=== PATIENT | female | born 1945 | race Caucasian/White ===

== ENCOUNTER → 2016-09-13 | Outpatient (CLI) | payer OTHER ==
[~2016-09-13] MED LIST: AMPI500C9 PO; HYDR12.56 PO; NXM/40 PO; ONDA8TAB7 PO; ROPI0.5T15 PO
== END | disposition home or self-care (01) ==
LOC: C.CPL 11:13
PROVIDERS: ATTEND Orthopaedic Surgery Sports Medicine
DX: M75.121 Complete rotator cuff tear or rupture of right shoulder, not specified as traumatic (principal)

== ENCOUNTER → 2016-12-27 | Outpatient (CLI) | payer OTHER ==
[2016-12-27 12:48] LABS: CALCIUM 8.9 mg/dl (8.5-10.1)
[2016-12-27 12:50] LABS: BLOOD UREA NITROGEN 9 mg/dl (7-18); BUN/CREATININE RATIO 12.5 (10-20); CARBON DIOXIDE 27 mmol/L (21-32); CHLORIDE 106 mmol/L (98-107); CREATININE 0.69 mg/dl (0.60-1.20); GLUCOSE 100 mg/dl (70-99); POTASSIUM 3.7 mmol/L (3.5-5.1); SODIUM 143 mmol/L (136-145)
== END | disposition home or self-care (01) ==
LOC: C.LAB1850 10:03
PROVIDERS: ATTEND Family Medicine
DX: I10 Essential (primary) hypertension (principal)

== ENCOUNTER → 2017-09-01 | Outpatient (CLI) | payer OTHER | LOC: C.MAMM 14:58 | PROVIDERS: ATTEND Family Medicine | DX: Z78.0 Asymptomatic menopausal state (principal) ==

== ENCOUNTER → 2017-11-06 | Outpatient (CLI) | payer OTHER ==
[2017-11-06 13:05] LABS: HEMATOCRIT 41.1 % (37-47); HEMOGLOBIN 13.6 g/dL (12.0-16.0); MEAN CELL VOLUME 89.2 fL (80-100); MEAN CORPUSCULAR HEMOGLOBIN 29.5 pg (25-34); MEAN CORPUSCULAR HGB CONC 33.1 g/dl (32-36); MEAN PLATELET VOLUME 9.5 fL (7.4-10.4); PLATELET COUNT 313 K/uL (130-400); RED CELL DISTRIBUTION WIDTH SD 41.9 fL (36.4-46.3); WHITE BLOOD COUNT 6.25 K/uL (4.8-10.8)
[2017-11-06 14:34] LABS: ALBUMIN 3.8 gm/dl (3.4-5.0); ALT/SGPT 36 U/L (12-78); AST/SGOT 16 U/L (15-37); BLOOD UREA NITROGEN 12 mg/dl (7-18); CALCIUM 9.1 mg/dl (8.5-10.1); CARBON DIOXIDE 28 mmol/L (21-32); CREATININE 0.71 mg/dl (0.60-1.20); GLUCOSE 98 mg/dl (70-99); POTASSIUM 3.9 mmol/L (3.5-5.1); SODIUM 140 mmol/L (136-145)
[2017-11-06 14:36] LABS: ALKALINE PHOSPHATASE 80 U/L (45-117); CHOLESTEROL 190 mg/dl (0-200); LDL CHOLESTEROL CALCULATED 106 mg/dl; TOTAL PROTEIN 7.6 gm/dl (6.4-8.2)
== END | disposition home or self-care (01) ==
LOC: C.LABPBG 09:35
PROVIDERS: ATTEND Family Medicine
DX: E78.5 Hyperlipidemia, unspecified (principal); I10 Essential (primary) hypertension

== ENCOUNTER 2022-08-05 09:28 | Inpatient (IN) ==
--- NOTE | 2022-08-05 09:49 | Emergency Department Note ---
Impression & Plan Atypical chest pain ED Provider Note NAME: SHAMA PICKARD AGE: 77 SEX: F : 1945 ARRIVES VIA: Walk-In INFORMANT: Patient, ED PROVIDER(S): Dave Ivory MD CHIEF COMPLAINT: Chest pain MEDICAL DECISION MAKING: Patient did present due to concern for chest pain. The patient did have bladder completed along with an EKG troponin DVT ultrasound. Aspirin was initially held due to the patient's Celebrex allergy. After further discussion patient states that she is able to take aspirin. Patient was also ordered nitro. The patient has a normal white count H&H and platelet count. Kidney function is unremarkable. Initial troponin is negative. EKG with no signs of obvious ischemia but the chest pain has improved with nitro. Given this I did speak with the on-call hospitalist Dr. Power and the patient was admitted to the medicine service. Patient's DVT ultrasound was negative. Chest x-ray was clear. Prior /Outside records reviewed: None Differential diagnosis: Cardiac ischemia, aortic dissection, pulmonary embolism, pneumothorax, pneumonia, pericarditis, myocarditis, esophageal rupture, GERD, cholecystitis, pancreatitis, musculoskeletal, as well as other pathologies. Diagnostics, as interpreted by me: ECG: Normal sinus rhythm, rate of 87 normal intervals normal axis no ST elevations or T WI. No significant change from comparison EKG September 13, 2016 Cardiac monitoring: An order was placed for continuous cardiac monitoring. The monitor shows a rate of 82 with sinus rhythm. Patient was placed on pulse oximetry Medical decision rules: none Imaging studies: See below HPI: Patient presents due to concern for chest pain. Patient describes it as left-sided and achiness that is constant. It does wax and wane. Patient does describe worsening with activity and does go to her arm neck and jaw. Patient denies any cough or fever. No leg swelling or calf pain. Patient does state that she has no prior history of DVT or PE no recent surgeries procedures or hospitalizations. The patient has had 2 cardiac catheterizations but they were many many years ago and completed at [facility] and the patient did not require any angioplasty or stent at that time. Patient states that she supposed be on aspirin but she is not taking that. Patient denies any recent falls or trauma no cough or fever no upper respiratory or lower respiratory symptoms. Patient denies any additional exacerbating remitting factors PAST MEDICAL HISTORY: See Below PAST SURGICAL HISTORY: See Below SOCIAL HISTORY: See Below HOME MEDICATIONS: See Below ALLERGIES: See Below VITALS: See Below PHYSICAL EXAMINATION: GENERAL: NAD, wearing a mask, non-toxic. EYE EXAM: Normal conjunctiva. PERRL, no anisocoria and EOM's grossly intact w/o pain. NECK: Supple, no nuchal rigidity, no adenopathy, non-tender. No signs of meningismus. FROM of the neck with good chin to chest and neck extension. No stridor. LUNGS: Clear to auscultation. Normal chest wall mechanics. HEART: NSR, no MRG. ABDOMEN: Abdomen soft, non-tender, normo-active bowel sounds, no masses, no rebound or guarding. BACK: No CVA TTP. SKIN: No rashes and no bruising. UPPER EXTREMITIES: Upper extremities are grossly normal. LOWER EXTREMITIES: Slightly left greater than right lower extremity edema but without calf pain or erythema NEURO EXAM: A&O x3, cranial nerves II-XII grossly intact, normal speech, moves all 4 extremities. Past Med/Surg History Medical History Chronic shoulder pain Diverticulosis Dyslipidemia Esophageal dysmotility Fatty liver GERD (gastroesophageal reflux disease) Hypertension Osteopenia Restless leg syndrome Venous insufficiency (chronic) (peripheral) Surgical History H/O repair of right rotator cuff (09/2016) H/O: hysterectomy History of cataract extraction b/l S/P appendectomy S/P arthroscopy of right shoulder (06/2017) S/P cholecystectomy S/P total knee arthroplasty b/l knee, R 2012 Family History Father Coronary heart disease Liver cancer Myocardial infarction Mother Diabetes Hyperlipidemia Hypertension Sister Diabetes Hypertension Lung cancer Breast cancer Uterine cancer Leukemia Ovarian cancer Brother Hypertension Denies family history of Prostate cancer Colorectal cancer Social History Smoking Status: Never smoker Second Hand Exposure: No; Hx Alcohol Use: No Hx Substance Use: No Preferred Language: Irish Communication Ability: Effective Visual Impairment: No Limitations Hearing Ability: Normal 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 Beliefs That Will Affect Care: Sikhism marital status: Current Living Situation: Family Current Living Situation Comment: daughter living w/ her current occupational status: retired How many Children do You have: 3 How many Children do You have Comment: 3 adopted children 2 boys and a girl Other Information That Helps Us Care for You: Yes Feels Safe at Home: Yes Safety Concerns: Feels Safe At This Time Childhood Exposure to Second-Hand Smoke: Yes Diet Comment: regular caffeine: Yes during the past year weight has: remained stable Dental Care, Regularly: Yes Physical Activity Frequency: Other Seatbelt Use: always Sunscreen Use: No Assistive Devices: None Allergies Allergies Allergy/AdvReac Type Severity Reaction Status Date / Time celecoxib Allergy Unknown HIVES Verified 06/13/22 13:15 Iodinated Contrast Media Allergy Unknown FROM HEART Verified 06/13/22 13:15 CATHERIZATION - TURNED REALLY RED AND MIGRAINE. Home Meds Home Medications Medication Instructions Recorded Confirmed calcium carbonate 600 mg calcium 600 mg PO DAILY 12/25/21 06/13/22 (1,500 mg) tablet (Calcium) cholecalciferol (vitamin D3) 50 50 mcg PO DAILY 12/25/21 06/13/22 mcg (2,000 unit) capsule Previous Rx's Medication Instructions Recorded hydrochlorothiazide 12.5 mg capsule 12.5 mg PO DAILY #90 caps 06/13/22 pantoprazole 40 mg tablet,delayed 40 mg PO BID #180 tabs 06/13/22 release Results & Data (ED) Vital Signs Vital Signs - 24 hr 08/05/22 09:35 Temperature 36.8 C Temperature Source Temporal Artery Scan Pulse Rate 93 H Respiratory Rate 20 Respiratory Effort / Characteristics Non-Labored Spontaneous Respiratory Depth Normal Respiratory Pattern Regular Blood Pressure 149/83 H Blood Pressure Mean 105 Pulse Oximetry 95 Oxygen Delivery Method Room Air Sepsis Recent Fever Within 48 Hours No Sepsis New/Unexplained Change in Mental Status N/A Sepsis Action Taken by Nursing No Action Required Home Medications Current Medication List: was personally reviewed by me Laboratory Data Attestation: I reviewed the patient's lab results. 08/06/22 02:15 08/06/22 02:15 Lab Results 08/05/22 08/05/22 08/05/22 Range/Units 09:49 09:49 09:49 WBC 5.69 (4.8-10.8) K/ul RBC 4.63 (3.93-5.22) M/uL Hgb 13.4 (12.0-16.0) g/dl Hct 40.6 (34.1-44.9) % MCV 87.7 (80.0-100.0) fL MCH 28.9 (25.0-34.0) pg MCHC 33.0 (32.0-36.0) g/dL RDW Std Deviation 38.0 (36.4-46.3) fL RDW Coeff of Kraig 11.9 (11.5-14.5) % Plt Count 274 (130-400) K/uL MPV 9.7 (9.4-12.3) fL Immature Gran % (Auto) 0.2 % Neut % (Auto) 59.1 % Lymph % (Auto) 30.9 % Smith % (Auto) 8.1 % Eos % (Auto) 1.2 % Baso % (Auto) 0.5 % Neut # (Auto) 3.36 (1.4-6.5) K/uL Lymph # (Auto) 1.76 (1.2-3.4) K/uL Smith # (Auto) 0.46 (0.24-0.82) K/uL Eos # (Auto) 0.07 (0-0.50) K/uL Baso # (Auto) 0.03 (0-0.2) K/uL Immature Gran # (Auto) 0.01 (0.00-0.02) K/uL PT 10.3 (9.0-12.0) Seconds INR 1.0 (0.9-1.1) APTT 26.8 (21.0-31.0) Seconds PTT Ratio 1.0 Sodium 143 (136-145) mmol/L Potassium 3.4 L (3.5-5.1) mmol/L Chloride 105 (98-107) mmol/L Carbon Dioxide 32 (21-32) mmol/L Anion Gap 6 (3-11) BUN 20 (6-23) mg/dl Creatinine 0.77 (0.6-1.2) mg/dl Est Cr Clr Drug Dosing 57.1 ml/min Est GFR ( Amer) 86.3 ml/min Est GFR (Non-Af Amer) 74.5 ml/min BUN/Creatinine Ratio 26.0 H (10-20) Glucose 103 H (70-99(Fasting)) mg/dl Calcium 9.3 (8.5-10.1) mg/dl Total Bilirubin 0.5 (0.2-1.0) mg/dl AST 15 (13-39) U/L ALT 18 (7-52) U/L Alkaline Phosphatase 60 (34-104) U/L Troponin I High Sens 2.8 (0-14) pg/ml Total Protein 7.3 (6.0-8.3) gm/dl Albumin 4.6 (3.4-5.0) gm/dl Globulin 2.7 (2.5-4.0) gm/dl Albumin/Globulin Ratio 1.7 (0.9-2) SARS-CoV-2, RNA, NAAT (NEGATIVE) 08/05/22 08/05/22 Range/Units 11:19 12:26 WBC (4.8-10.8) K/ul RBC (3.93-5.22) M/uL Hgb (12.0-16.0) g/dl Hct (34.1-44.9) % MCV (80.0-100.0) fL MCH (25.0-34.0) pg MCHC (32.0-36.0) g/dL RDW Std Deviation (36.4-46.3) fL RDW Coeff of Kraig (11.5-14.5) % Plt Count (130-400) K/uL MPV (9.4-12.3) fL Immature Gran % (Auto) % Neut % (Auto) % Lymph % (Auto) % Smith % (Auto) % Eos % (Auto) % Baso % (Auto) % Neut # (Auto) (1.4-6.5) K/uL Lymph # (Auto) (1.2-3.4) K/uL Smith # (Auto) (0.24-0.82) K/uL Eos # (Auto) (0-0.50) K/uL Baso # (Auto) (0-0.2) K/uL Immature Gran # (Auto) (0.00-0.02) K/uL PT (9.0-12.0) Seconds INR (0.9-1.1) APTT (21.0-31.0) Seconds PTT Ratio Sodium (136-145) mmol/L Potassium (3.5-5.1) mmol/L Chloride (98-107) mmol/L Carbon Dioxide (21-32) mmol/L Anion Gap (3-11) BUN (6-23) mg/dl Creatinine (0.6-1.2) mg/dl Est Cr Clr Drug Dosing ml/min Est GFR ( Amer) ml/min Est GFR (Non-Af Amer) ml/min BUN/Creatinine Ratio (10-20) Glucose (70-99(Fasting)) mg/dl Calcium (8.5-10.1) mg/dl Total Bilirubin (0.2-1.0) mg/dl AST (13-39) U/L ALT (7-52) U/L Alkaline Phosphatase (34-104) U/L Troponin I High Sens 3.0 (0-14) pg/ml Total Protein (6.0-8.3) gm/dl Albumin (3.4-5.0) gm/dl Globulin (2.5-4.0) gm/dl Albumin/Globulin Ratio (0.9-2) SARS-CoV-2, RNA, NAAT NEGATIVE (NEGATIVE) Administered Medications Acetaminophen (Acetaminophen 325 Mg Tab) 650 mg PO Q4H PRN PRN Reason: Pain or Fever Stop: 09/04/22 14:51 Last Admin: 08/05/22 15:27 Dose: 650 mg Documented By: MICH Calcium Carbonate (Calcium Carbonate 1250mg Tab) 1,250 mg PO DAILY [facility] Stop: 09/05/22 08:59 Last Admin: 08/06/22 07:35 Dose: Not Given Documented By: JONI Enoxaparin Sodium (Enoxaparin Inj 40 Mg/0.4 Ml Syr) 40 mg SQ Q24H [facility] Stop: 09/05/22 08:59 Last Admin: 08/06/22 07:37 Dose: 40 mg Documented By: JONI Hydrochlorothiazide (Hydrochlorothiazide 25 Mg Tab) 12.5 mg PO DAILY [facility] Stop: 09/05/22 08:59 Last Admin: 08/06/22 07:36 Dose: Not Given Documented By: JONI Nitroglycerin (Nitroglycerin 2% Ointment 30gm Tube) 0.5 inch EXT Q6H [facility] Stop: 09/04/22 12:44 Last Admin: 08/06/22 06:31 Dose: Not Given Documented By: Admin: 08/06/22 01:19 Dose: 0.5 inch Documented By: Admin: 08/05/22 18:44 Dose: 0.5 inch Documented By: Admin: 08/05/22 12:47 Dose: 0.5 inch Documented By: MALIHA Pantoprazole Sodium (Pantoprazole 40 Mg Tab) 40 mg PO BID [facility] Stop: 09/04/22 20:59 Last Admin: 08/06/22 07:36 Dose: Not Given Documented By: Admin: 08/05/22 20:34 Dose: 40 mg Documented By: CORINA Potassium Chloride (Potassium Chloride Crtab 20 Meq Tabcr) 20 meq PO TID [facility] Stop: 08/06/22 09:01 Last Admin: 08/06/22 07:36 Dose: Not Given Documented By: Admin: 08/05/22 20:35 Dose: 20 meq Documented By: Admin: 08/05/22 13:15 Dose: 20 meq Documented By: MALIHA Vitamin D (Cholecalciferol 1,000 Units 25 Mcg Tab) 2,000 units PO DAILY [facility] Stop: 09/05/22 08:59 Last Admin: 08/06/22 07:36 Dose: Not Given Documented By: JONI Discontinued Medications Aspirin (Aspirin Chew 324 Mg) 324 mg PO NOW STA Stop: 08/05/22 12:01 Last Admin: 08/05/22 12:35 Dose: 324 mg Documented By: MALIHA Famotidine (Famotidine 20mg/5ml Iv Push) Confirm Administered Dose 20 mg IV .STK-MED ONE Stop: 08/05/22 13:18 Last Admin: 08/05/22 13:23 Dose: Not Given Documented By: MALIHA Sodium Chloride (Nss 1000ml) 500 mls @ 999 mls/hr IV .Q31M ONE Stop: 08/05/22 10:39 Last Infusion: 08/05/22 10:49 Dose: 0 mls/hr Documented By: Admin: 08/05/22 10:18 Dose: 999 mls/hr Documented By: FERNANDA Famotidine 20 mg/ Syringe 5 mls @ 2.5 mls/min IV NOW ONE Stop: 08/05/22 12:53 Last Admin: 08/05/22 13:23 Dose: 2.5 mls/min Documented By: MALIHA Nitroglycerin (Nitroglycerin Sl 0.4 Mg/Tab Tab) 0.4 mg SL NOW STA Stop: 08/05/22 10:10 Last Admin: 08/05/22 10:17 Dose: 0.4 mg Documented By: FERNANDA Ondansetron HCl (Ondansetron Inj 2 Mg/Ml 2 Ml Vial) 4 mg IV NOW STA Stop: 08/05/22 10:10 Last Admin: 08/05/22 10:17 Dose: 4 mg Documented By: FERNANDA Imaging Data Radiologist's Impression: Chest X-Ray 08/05/22 09:52 XR chest 1V portable HISTORY: 77 years-old Female Chest pain, nonspecific chest pain COMPARISON: Chest and rib radiographs 06/12/2020 TECHNIQUE: AP view of the chest FINDINGS: Cardiomediastinal and hilar silhouettes are within normal limits. No pneumothorax, pleural effusions, airspace consolidation or pulmonary edema. Mild right hemidiaphragmatic elevation. Degenerative changes of the shoulders and spine. IMPRESSION: No acute process. ACT 112: Negative or not required by law. The above report was generated using voice recognition software. It may contain grammatical, syntax or spelling errors. Electronically signed by: Boy Joshua M.D. 08/05/2022 10:10 AM Venous Doppler Study 08/05/22 10:09 US venous doppler LE LT CLINICAL HISTORY: LLE swelling TECHNIQUE: Left lower extremity real-time compression venous ultrasound with Color Doppler imaging. Utilizing real-time ultrasonic imaging multiple real time high-resolution ultrasonic images with compression and noncompression maneuvers of the deep venous system in addition to color doppler imaging were performed from the common femoral vein through the proximal calf veins. COMPARISON: None available at the time of this dictation. FINDINGS/IMPRESSION: Currently there is normal compressibility of the deep venous system from the common femoral vein through the proximal calf veins. No superficial venous thrombosis is identified. ACT 112: Negative or not required by law. Electronically signed by: Junito Villarreal M.D. 08/05/2022 10:58 AM Discharge Plan Visit Data Chief Complaint: Chest Pain Stated Complaint: CHEST PAIN, NECK PAIN ED Provider: Dave Ivory Discharge Problem: Atypical chest pain Patient Disposition: Admitted As Inpatient Discharge Instructions Interventions: ED Discharge Assessment Last Done: 08/05/22 13:34
[2022-08-05] MEDS ORDERED: ONDANSETRON INJ 2 MG/ML 2 ML VIAL IV STA (10:09)
[2022-08-05] MEDS ORDERED: SODIUM CHLORIDE 0.9% 1000ML 500 ML IV ONE (10:09)
[2022-08-05] MEDS ORDERED: NITROGLYCERIN SL 0.4 MG/TAB TAB SL STA (10:09)
--- NOTE | 2022-08-05 10:12 | XRay Report ---
XR chest 1V portable HISTORY: 77 years-old Female Chest pain, nonspecific chest pain COMPARISON: Chest and rib radiographs 06/12/2020 TECHNIQUE: AP view of the chest FINDINGS: Cardiomediastinal and hilar silhouettes are within normal limits. No pneumothorax, pleural effusions, airspace consolidation or pulmonary edema. Mild right hemidiaphragmatic elevation. Degenerative hurst ges of the shoulders and spine. IMPRESSION: No acute process. ACT 112: Negative or not required by law. The above report was generated using voice recognition software. It may contain grammatical, syntax o r spelling errors. Electronically signed by: Boy Joshua M.D. 08/05/2022 10:10 AM
[2022-08-05 10:17] LABS: Basophils # (auto) 0.03 K/uL (0-0.2); Basophils % (auto) 0.5 %; Eosinophils # (auto) 0.07 K/uL (0-0.50); Eosinophils % (auto) 1.2 %; Hematocrit (blood only) 40.6 % (34.1-44.9); Hemoglobin 13.4 g/dl (12.0-16.0); Immature Granulocytes # (auto) 0.01 K/uL (0.00-0.02); Immature Granulocytes % (auto) 0.2 %; Lymphocytes # (auto) 1.76 K/uL (1.2-3.4); Lymphocytes % (auto) 30.9 %; Mean Corpuscular Hemoglobin 28.9 pg (25.0-34.0); Mean Corpuscular Volume 87.7 fL (80.0-100.0); Mean Platelet Volume 9.7 fL (9.4-12.3); Monocytes # (auto) 0.46 K/uL (0.24-0.82); Monocytes % (auto) 8.1 %; Neutrophils # (auto) 3.36 K/uL (1.4-6.5); Neutrophils % (auto) 59.1 %; Platelet Count 274 K/uL (130-400); RDW Coefficient of Variation 11.9 % (11.5-14.5); Red Blood Count 4.63 M/uL (3.93-5.22); White Blood Count 5.69 K/ul (4.8-10.8)
[2022-08-05 10:30] LABS: Partial Thromboplastin Time 26.8 Seconds (21.0-31.0); Prothrombin Time 10.3 Seconds (9.0-12.0)
[2022-08-05 10:36] LABS: Albumin Globulin Ratio 1.7 (0.9-2); Albumin Level 4.6 gm/dl (3.4-5.0); Bilirubin,Total 0.5 mg/dl (0.2-1.0); Calcium 9.3 mg/dl (8.5-10.1); Creatinine Clr Calc Pharmacy 57.1 ml/min; Est GFR (African American) 86.3 ml/min; Est GFR (Non-African American) 74.5 ml/min; Globulin 2.7 gm/dl (2.5-4.0); Potassium 3.4 mmol/L (3.5-5.1); Total Protein 7.3 gm/dl (6.0-8.3)
[2022-08-05 10:42] LABS: Troponin I High Sensitivity 2.8 pg/ml (0-14)
--- NOTE | 2022-08-05 10:59 | Ultrasound Report ---
US venous doppler LE LT CLINICAL HISTORY: LLE swelling TECHNIQUE: Left lower extremity real-time compression venous ultrasound with Color Doppler imaging. U tilizing real-time ultrasonic imaging multiple real time high-resolution ultrasonic images with compr ession and noncompression maneuvers of the deep venous system in addition to color doppler imaging we re performed from the common femoral vein through the proximal calf veins. COMPARISON: None available at the time of this dictation. FINDINGS/IMPRESSION: Currently there is normal compressibility of the deep venous system from the common femoral vein thro ugh the proximal calf veins. No superficial venous thrombosis is identified. ACT 112: Negative or not required by law. Electronically signed by: Junito Villarreal M.D. 08/05/2022 10:58 AM
[2022-08-05] MEDS ORDERED: ASPIRIN CHEW 324 MG PO STA (12:00)
--- NOTE | 2022-08-05 12:01 | History & Physical Report ---
Date of Service August 05, 2022 Assessment & Plan (1) Chest pain: Plan: Chest pain -Patient reports 3 days of worsening chest pain consistently brought out with exertion including going up stairs and walking on a level plane which is associated with left shoulder radiation, and neck discomfort. She has had shortness of breath and some sweating with these episodes. They are improved by rest. Have occurred less frequently at rest once or twice over the preceding 3 days Pain did improve following administration of sublingual nitro Patient does have a history of esophageal dysmotility/GERD with recent EGD which could present with atypical symptoms, given strong association with exercise and change in quality from her prior GERD pain recommend additional evaluation & ischemic work-up At least moderate risk by heart score. Moderately-Highly suspicious history, normal EKG, age greater than 65, history of hypertension, and family history of early OK, no personal history of tobacco use, initial troponin normal. - Cardiology consulted. EKG NSR without ST segment or T wave changes Initial troponin high-sensitivity negative No personal history of diabetes. History of mild hyperlipidemia with LDL 97, no history of OK. Patient did have 2 cardiac caths the last and [facility] over 20 years ago with no stents placed 2-hour troponin & overnight troponin trended Nitropaste half inch placed Esophageal dysmotility/GERD Continue PPI twice daily Added Pepcid push x1 Elevated glucose Nonfasting 103, no A1c on file. No history of DM. Repeat a.m. BMP/glucose pending Hypertension Stable on hydrochlorothiazide Hyperlipidemia Controlled as outpatient with diet and exercise, 06/13/2022: Triglycerides 117, cholesterol 189, LDL, 97, HDL 69 Fatty liver disease No transaminitis, stable as outpatient Osteopenia Continue on calcium/vitamin D Diet: N.p.o. pending cardiac eval Disposition: Medical telemetry for chest pain DVT prophylaxis: Lovenox CODE STATUS: DNR/DNI, discussed with patient and daughter at bedside (2) Esophageal dysmotility: (3) GERD (gastroesophageal reflux disease): (4) Dyslipidemia: (5) Hypertension: History of Present Illness Primary Care Provider: DO Kirti Perez is a 77-year-old female with a past medical history of GERD, hypertension, dyslipidemia, de Quervain's tenosynovitis who presents with chest pain radiating into the neck. EKG: Normal sinus rhythm, QTC 457, no ST segment changes or T wave abnormalities. Initial troponin is 2.8, negative Sodium normal, KJ slightly low at 3.4, COVID-negative CBC is normal. Hxcath without stents x2 several years ago 3 days sx worseningwith activity EKG normal, trop normal Nitro 3 days of pain in chest, sternum, neck, and shoulder. She has some associated shortness of breath with it. Exertion brings it out, rest normally improves pain but last night had more gas and pain which persisted 2 hours overnight. No orthopneasia. Nitro tablet helped pain. Has occured at rest 1-2x in the last 3 days, but is usually and consistently brought on jeb gup stairs and sometimes walking. Hx of reflux/GERD, odynophagia, dysphagia. EGD 02/2022 with mild erythema, +reflux esophagitis. No history of OK. Fhx mother had OK, father at 60 and had OK in early 50s. Pt had a cath >20 years ago at [facility] with no stents placed Siser with DM. Pt denies history of DM HTN on water pill (hctz) Has reatined fluid since having ahysterectomy in her 40s, no recent change Sees Dr. Vang Medical History: Reviewed Medications: Reviewed. Did not take today. Potassium/protonix/vit D/hctz Surgical History: Reviewed Allergies: Celebrex, hives Social History: No tobacco product use current or former, no etoh, no MM Code Status: DNR/DNI Allergies Allergy/AdvReac Type Severity Reaction Status Date / Time celecoxib Allergy Unknown HIVES Verified 06/13/22 13:15 Iodinated Contrast Media Allergy Unknown FROM HEART Verified 06/13/22 13:15 CATHERIZATION - TURNED REALLY RED AND MIGRAINE. Home Medications Medication Instructions Recorded Confirmed Type calcium carbonate 600 mg calcium 600 mg PO DAILY 12/25/21 06/13/22 History (1,500 mg) tablet (Calcium) cholecalciferol (vitamin D3) 50 50 mcg PO DAILY 12/25/21 06/13/22 History mcg (2,000 unit) capsule hydrochlorothiazide 12.5 mg capsule 12.5 mg PO DAILY #90 caps 06/13/22 06/13/22 Rx pantoprazole 40 mg tablet,delayed 40 mg PO BID #180 tabs 06/13/22 06/13/22 Rx release Past Med/Surg History Medical History Chronic shoulder pain Diverticulosis Dyslipidemia Esophageal dysmotility Fatty liver GERD (gastroesophageal reflux disease) Hypertension Osteopenia Restless leg syndrome Venous insufficiency (chronic) (peripheral) Surgical History H/O repair of right rotator cuff (09/2016) H/O: hysterectomy History of cataract extraction S/P appendectomy S/P arthroscopy of right shoulder (06/2017) S/P cholecystectomy S/P total knee arthroplasty Family History Father Coronary heart disease Liver cancer Myocardial infarction Mother Diabetes Hyperlipidemia Hypertension Sister Diabetes Hypertension Lung cancer Breast cancer Uterine cancer Leukemia Ovarian cancer Brother Hypertension Denies family history of Prostate cancer Colorectal cancer Social History Smoking Status: Never smoker Second Hand Exposure: No; Hx Alcohol Use: No Hx Substance Use: No Preferred Language: Luxembourgish Communication Ability: Effective Visual Impairment: No Limitations Hearing Ability: Normal Community Advocate Required: No Beliefs That Will Affect Care: None marital status: Current Living Situation: Family Current Living Situation Comment: daughter living w/ her current occupational status: retired How many Children do You have: 3 How many Children do You have Comment: 3 adopted children 2 boys and a girl Feels Safe at Home: Yes Childhood Exposure to Second-Hand Smoke: Yes Diet Comment: regular caffeine: Yes during the past year weight has: remained stable Dental Care, Regularly: Yes Physical Activity Frequency: Other Seatbelt Use: always Sunscreen Use: No Review of Systems Review of Systems: All systems reviewed & are unremarkable except as noted in HPI & below Physical Exam Physical Exam: General: A&Ox3. NAD. Cooperative. HEENT: Atraumatic, normocephalic. Vision/hearing intact Pulm: CTAB A&P. -wheezes, -rales, -rhonchi. Symmetrical chest rise. No increased work of breathing. No respiratory distress. Cardiac: RRR, -mrg. Radial pulses intact and symmetrical. No JVD Abdominal: Nontender, nondistended, soft. BS present. Ext: L>R pitting edema. Sensation to soft touch intact. Harm Reduction Worker strength, hip flexion, ankle dorsiflexion/extension 5/5 Results & Data Results & Data ([facility]) Vital Signs (Past 12 Hours) Vital Signs Temp Pulse Resp BP Pulse Ox O2 Del Method 08/05/22 09:35 36.8 C 93 H 20 149/83 H 95 Room Air PG Care Time/CCT Total # of Minutes Spent Total Time Spent with Patient: Total time spent is greater than 50% in coordination of care (as documented) at patient's floor/unit and/or counseling patient: Coding Level of Care Code 84512 INT INP/OBS CARE 2/55MIN Diagnoses Chest pain R07.9 Esophageal dysmotility K22.4 GERD (gastroesophageal reflux disease) K21.9 Dyslipidemia E78.5 Hypertension I10
[2022-08-05] MEDS: NITROGLYCERIN 2% OINTMENT 30GM TUBE EXT SCH ×2 (12:47→18:44)
[2022-08-05] MEDS ORDERED: FAMOTIDINE 20 MG in SYRINGE 3 ML IV ONE (12:52)
[2022-08-05] MEDS: POTASSIUM CHLORIDE CRTAB 20 MEQ TABCR PO SCH ×2 (13:15→20:35)
[2022-08-05] MEDS ORDERED: FAMOTIDINE 20MG/5ML IV PUSH IV ONE (13:17)
[2022-08-05] MEDS ORDERED: MoRPHine SULFATE 2 MG/ML CARP IV PRN (14:52)
[2022-08-05] MEDS ORDERED: ONDANSETRON INJ 2 MG/ML 2 ML VIAL IV PRN (14:52)
[2022-08-05] MEDS ORDERED: NITROGLYCERIN SL 0.4 MG/TAB TAB SL PRN (14:52)
[2022-08-05] MEDS: ACETAMINOPHEN 325 MG TAB PO PRN (15:27)
--- NOTE | 2022-08-05 18:18 | XCELERA ---
[id number]
--- NOTE | 2022-08-05 18:22 | Electrocardiogram Report ---
Test Reason : Blood Pressure : / mmHG Vent. Rate : 087 BPM Atrial Rate : 087 BPM P-R Int : 160 ms QRS Dur : 082 ms QT Int : 380 ms P-R-T Axes : 042 041 048 degrees QTc Int : 457 ms Normal sinus rhythm Normal ECG When compared with ECG of 13-SEP-2016 11:21, No significant change was found Confirmed by Rakan Fuentes ([id number]) on 08/05/2022 6:22:16 PM Referred By: REFERRED SELF Confirmed By:Jose Fuentes
[2022-08-05] MEDS: PANTOprazole 40 MG TAB PO SCH (20:34)
[2022-08-06] MEDS: NITROGLYCERIN 2% OINTMENT 30GM TUBE EXT SCH ×4 (01:19→15:35)
[2022-08-06 02:39] LABS: Basophils # (auto) 0.03 K/uL (0-0.2); Basophils % (auto) 0.6 %; Eosinophils # (auto) 0.13 K/uL (0-0.50); Eosinophils % (auto) 2.6 %; Hemoglobin 11.4 g/dl (12.0-16.0); Immature Granulocytes # (auto) 0.01 K/uL (0.00-0.02); Immature Granulocytes % (auto) 0.2 %; Lymphocytes # (auto) 2.15 K/uL (1.2-3.4); Lymphocytes % (auto) 42.6 %; Mean Corpuscular Hemoglobin 29.6 pg (25.0-34.0); Mean Corpuscular Hgb Conc 33.5 g/dL (32.0-36.0); Mean Corpuscular Volume 88.3 fL (80.0-100.0); Mean Platelet Volume 9.9 fL (9.4-12.3); Monocytes # (auto) 0.47 K/uL (0.24-0.82); Monocytes % (auto) 9.3 %; Neutrophils # (auto) 2.26 K/uL (1.4-6.5); Neutrophils % (auto) 44.7 %; Platelet Count 231 K/uL (130-400); RDW Coefficient of Variation 11.8 % (11.5-14.5); RDW Standard Deviation 37.6 fL (36.4-46.3); Red Blood Count 3.85 M/uL (3.93-5.22); White Blood Count 5.05 K/ul (4.8-10.8)
[2022-08-06 02:56] LABS: Calcium 8.4 mg/dl (8.5-10.1); Potassium 3.8 mmol/L (3.5-5.1)
[2022-08-06 03:01] LABS: BUN Creatinine Ratio 23.4 (10-20); Creatinine Clr Calc Pharmacy 67.6 ml/min; Est GFR (African American) 99.8 ml/min; Est GFR (Non-African American) 86.1 ml/min
[2022-08-06] MEDS: CHOLECALCIFEROL 1,000 UNITS 25 MCG TAB PO SCH ×2 (07:29→07:36)
[2022-08-06] MEDS: PANTOprazole 40 MG TAB PO SCH ×3 (07:29→20:38)
[2022-08-06] MEDS: hydroCHLOROthiazide 25 MG TAB PO SCH ×2 (07:29→07:36)
[2022-08-06] MEDS: POTASSIUM CHLORIDE CRTAB 20 MEQ TABCR PO SCH ×2 (07:30→07:36)
[2022-08-06] MEDS: CALCIUM CARBONATE 1250MG TAB PO SCH ×2 (07:31→07:35)
[2022-08-06] MEDS: ENOXAPARIN INJ 40 MG/0.4 ML SYR SQ SCH ×2 (07:31→07:37)
--- NOTE | 2022-08-06 08:13 | Hospitalist Progress Note ---
Date of Service August 06, 2022 Assessment & Plan (1) Chest pain: Plan: Chest pain acute unstable angina -Patient reports 3 days of worsening chest pain consistently brought out with exertion including going up stairs and walking with left shoulder radiation, and neck discomfort. She has had shortness of breath and some sweating with these episodes. They are improved by rest and nitro. Have occurred less frequently at rest once or twice over the preceding 3 days Cardiology consulted. Performed treadmill stress test today reportedly without significant changes although formal report is not in. Patient states she has significant discomfort during the test troponin negative x 4 We will keep n.p.o. after midnight further discussion with cardiology in case additional restratification will be planned Esophageal dysmotility/GERD chronic unclear if stable at this time EGD 03/04 with esophagitis and gastritis Continue PPI twice daily Added Pepcid push x1 Elevated glucose Nonfasting 103, no A1c on file. No history of DM. subsequent glucoses are normal Hypertension chronic stable on hydrochlorothiazide Hyperlipidemia chronic stable Fatty liver diseasem chronic stable No transaminitis Osteopenia Continue on calcium/vitamin D DVT prophylaxis: Lovenox CODE STATUS: DNR/DNI, discussed with patient and daughter at bedside (2) Esophageal dysmotility: (3) GERD (gastroesophageal reflux disease): (4) Dyslipidemia: (5) Hypertension: Admission and Anticipated Discharge Date Admission Date: August 05, 2022 Subjective Patient had significant exacerbation of her symptoms during her stress test with chest pain radiating to her jaw and arm. Chest is reported not yet returned. Patient will be allowed to have diet kept n.p.o. after midnight in case cardiology wishes to pursue more interventional testing or even nuclear testing Physical Exam Physical Exam: At rest the patient has no complaints or problems cardiac exam is regular to distant without significant murmurs lungs are clear without wheezes or crackles no musculoskeletal reproduction with movement of her arms or palpation of her chest wall Results & Data Results & Data ([facility]) Vital Signs (Past 12 Hours) Vital Signs Temp Pulse Pulse Resp BP Pulse Ox O2 Del Method 08/06/22 07:16 98.4 F 70 18 120/76 95 Room Air 08/06/22 07:08 90 08/06/22 06:26 98.4 F 72 18 96/58 L 95 Room Air 08/06/22 02:45 98.6 F 65 18 121/77 93 Room Air 08/06/22 01:15 105/64 08/06/22 00:54 71 08/05/22 23:04 98.4 F 63 18 120/68 96 Room Air Diagnostic Findings Reviewed CBC hemoglobin 11.4 With serial high-sensitivity troponins no elevation or abnormality Repeat chemistry normal renal function and electrolytes PG Care Time/CCT Total # of Minutes Spent Total Time Spent with Patient: Total time spent is greater than 50% in coordination of care (as documented) at patient's floor/unit and/or counseling patient: Coding Level of Care Code 68247 SUB INP/OBS CARE 3/50MIN Diagnoses Chest pain R07.9 Esophageal dysmotility K22.4 GERD (gastroesophageal reflux disease) K21.9 Dyslipidemia E78.5 Hypertension I10
--- NOTE | 2022-08-06 09:50 | Cardiology Consultation ---
Date of Consultation August 06, 2022 Assessment & Plan (1) Chest pain: Normal troponin. No ischemic EKG changes. Echo without segmental wall motion abnormalities. Normal LVEF. Unilateral LE swelling with venous doppler not consistent with DVT. No d-dimer to exclude PE but seems unlikely. Recommend stress test. She will attempt exercise stress echo, if she is unsuccessful we will change her to dobutamine stress echo. Further recommendations pending results of the stress test. (2) Dyslipidemia: Her LDL is 97, HDL 69. In the absence of DM, CAD, or PAD she is no more than intermediate risk. At this time, there is no clear indication for a statin. Continue dietary restrictions and increase exercise. (3) Hypertension: BP at target. Takes only HCTZ at home. We will make additional recommendations pending results of her stress test. If stress test is negative then she should just remain on hydrochlorothiazide as she is currently at target. History of Present Illness Reason for Consultation: atypical chest pain Attending Physician: Ti Chavez MD History of Present Illness 77 yo female with HTN, dyslipidemia, but without cardiac history presented for several days hx of chest pain on exertion and sometimes at rest. She reports occasional radiation of pain to the arm and neck. She has a history of hiatal hernia, GERD, and more recently dysphagia. In fact, she is awaiting an appointment to be scheduled at [facility] for her dysphagia. Her cu rrent discomfort is somewhat different than her usual GI discomfort. The discomfort also occurs sometimes at rest. She also has dyspnea on exertion which occurs when climbing stairs or going uphill. She does not exercise regularly. She does believe that she could walk on a treadmill for stress testing. She denies prior cardiac problems and has not had prior cardiac work- up. She thinks she may have had a treadmill stress test many years ago. She denies any syncope, near syncope, orthopnea, PND, racing heartbeat, palpitations, or edema. She states she did have swelling in her left leg ye sterday which was nontender. No other complaints or concerns at this time. Allergies Allergy/AdvReac Type Severity Reaction Status Date / Time celecoxib Allergy Unknown HIVES Verified 06/13/22 13:15 Iodinated Contrast Media Allergy Unknown FROM HEART Verified 06/13/22 13:15 CATHERIZATION - TURNED REALLY RED AND MIGRAINE. Home Medications Medication Instructions Recorded Confirmed Type calcium carbonate 600 mg calcium 600 mg PO DAILY 12/25/21 06/13/22 History (1,500 mg) tablet (Calcium) cholecalciferol (vitamin D3) 50 50 mcg PO DAILY 12/25/21 06/13/22 History mcg (2,000 unit) capsule hydrochlorothiazide 12.5 mg capsule 12.5 mg PO DAILY #90 caps 06/13/22 06/13/22 Rx pantoprazole 40 mg tablet,delayed 40 mg PO BID #180 tabs 06/13/22 06/13/22 Rx release Patient History Medical History Chronic shoulder pain Diverticulosis Dyslipidemia Esophageal dysmotility Fatty liver GERD (gastroesophageal reflux disease) Hypertension Osteopenia Restless leg syndrome Venous insufficiency (chronic) (peripheral) Surgical History H/O repair of right rotator cuff (09/2016) H/O: hysterectomy History of cataract extraction b/l S/P appendectomy S/P arthroscopy of right shoulder (06/2017) S/P cholecystectomy S/P total knee arthroplasty b/l knee, R 2012 Family History Father Coronary heart disease Liver cancer Myocardial infarction Mother Diabetes Hyperlipidemia Hypertension Sister Diabetes Hypertension Lung cancer Breast cancer Uterine cancer Leukemia Ovarian cancer Brother Hypertension Denies family history of Prostate cancer Colorectal cancer Social History Smoking Status: Never smoker Second Hand Exposure: No; Hx Alcohol Use: No Hx Substance Use: No Preferred Language: Greek Communication Ability: Effective Visual Impairment: No Limitations Hearing Ability: Normal Elder Counselor Required: No Beliefs That Will Affect Care: Buddhist marital status: Current Living Situation: Family Current Living Situation Comment: daughter living w/ her current occupational status: retired How many Children do You have: 3 How many Children do You have Comment: 3 adopted children 2 boys and a girl Other Information That Helps Us Care for You: Yes Feels Safe at Home: Yes Safety Concerns: Feels Safe At This Time Childhood Exposure to Second-Hand Smoke: Yes Diet Comment: regular caffeine: Yes during the past year weight has: remained stable Dental Care, Regularly: Yes Physical Activity Frequency: Other Seatbelt Use: always Sunscreen Use: No Assistive Devices: None Review of Systems Review of Systems: No fevers, chills, cough, sputum production, hematochezia, hematemesis, melena, dysuria, hematuria, constipation or diarrhea. The remainder of her 12 point review of systems is negative except as per HPI Physical Exam Constitutional: WD/WN, vitals as above (Obese, elderly) Eyes: Extraocular muscles intact. Sclera are anicteric. ENMT: Oral mucosa is pink, moist, and intact. Neck: Thick, short, no JVD or bruits Respiratory: Clear to auscultation bilaterally. No wheezing, rhonchi, or rales. Cardiovascular: Regular rate and rhythm. S4 gallop. Do not appreciate any rubs or murmurs. No edema in the bilateral lower extremities Gastrointestinal (Abdomen): NABS Musculoskeletal: no cyanosis or clubbing, extremities motor strength 5/5 Neurologic: Cognition is intact. Speech is fluent. No focal deficits. No tremor. Psychiatric: A+Ox3, euthymic affect Results & Data ([facility]) Vital Signs (Past 12 Hours) Vital Signs Temp Pulse Pulse Resp BP Pulse Ox O2 Del Method 08/06/22 07:16 36.9 C 70 18 120/76 95 Room Air 08/06/22 07:08 90 08/06/22 06:26 36.9 C 72 18 96/58 L 95 Room Air 08/06/22 02:45 37.0 C 65 18 121/77 93 Room Air 08/06/22 01:15 105/64 08/06/22 00:54 71 08/05/22 23:04 36.9 C 63 18 120/68 96 Room Air PG Care Time/CCT Total # of Minutes Spent Total Time Spent with Patient: Total time spent is greater than 50% in coordination of care (as documented) at patient's floor/unit and/or counseling patient: [place] [address] INT INP/OBS CARE 2/55MIN Patient Type New Diagnoses Chest pain R07.9 Dyslipidemia E78.5 Hypertension I10 Time Spent (min) 55
[2022-08-07] MEDS: NITROGLYCERIN 2% OINTMENT 30GM TUBE EXT SCH ×2 (01:16→08:14)
[2022-08-07] MEDS: ACETAMINOPHEN 325 MG TAB PO PRN (05:46)
[2022-08-07] MEDS: PANTOprazole 40 MG TAB PO SCH ×2 (08:09→21:47)
[2022-08-07] MEDS: CALCIUM CARBONATE 1250MG TAB PO SCH (08:10)
[2022-08-07] MEDS: CHOLECALCIFEROL 1,000 UNITS 25 MCG TAB PO SCH (08:10)
[2022-08-07] MEDS: ENOXAPARIN INJ 40 MG/0.4 ML SYR SQ SCH (08:10)
[2022-08-07] MEDS: hydroCHLOROthiazide 25 MG TAB PO SCH (08:13)
[2022-08-07 08:28] LABS: Creatinine Clr Calc Pharmacy 68.1 ml/min; Est GFR (African American) 100.3 ml/min; Est GFR (Non-African American) 86.5 ml/min; Magnesium 1.9 mg/dl (1.7-2.4); Potassium 3.8 mmol/L (3.5-5.1)
[2022-08-07 08:35] LABS: Troponin I High Sensitivity 2.7 pg/ml (0-14)
--- NOTE | 2022-08-07 11:20 | XCELERA ---
[id number]
[2022-08-07] MEDS ORDERED: methylPREDNISolone 40 MG in SYRINGE 0 ML IV ONE ×2 (12:45→15:37)
[2022-08-07] MEDS: SODIUM CHLORIDE 0.9% 500 ML IV SCH ×2 (13:17→21:47)
[2022-08-07] MEDS ORDERED: diphenhydrAMINE 50 MG/ML VIAL IV ONE (15:27)
--- NOTE | 2022-08-07 16:29 | Hospitalist Progress Note ---
Date of Service August 07, 2022 Assessment & Plan (1) Chest pain: Plan: Chest pain acute unstable angina -Patient reports 3 days of worsening chest pain consistently brought out with exertion improved by rest and nitro. Cardiology consulted. Performed treadmill stress test 08/06/2022 reportedly without significant changes Patient states she has significant discomfort during the test troponin negative x5 Cardiology recommends CT angiography of chest and if negative will consider pursuing left heart catheterization on 08/08/2022 Patient with contrast allergy premedication performed 08/07 for testing We will keep n.p.o. after midnight further discussion with cardiology in case additional testing will be planned Esophageal dysmotility/GERD chronic unclear if stable at this time chronic and stable EGD 03/04 with esophagitis and gastritis Continue PPI twice daily Elevated glucose self-limited not an active issue Nonfasting 103, no A1c on file. No history of DM. subsequent glucoses are normal Hypertension chronic stable on hydrochlorothiazide Hyperlipidemia chronic stable Fatty liver disease chronic stable No transaminitis Osteopenia Continue on calcium/vitamin D DVT prophylaxis: Lovenox CODE STATUS: DNR/DNI, discussed with patient and daughter at bedside (2) Esophageal dysmotility: (3) GERD (gastroesophageal reflux disease): (4) Dyslipidemia: (5) Hypertension: Admission and Anticipated Discharge Date Admission Date: August 05, 2022 Subjective Patient had significant exacerbation of her symptoms during her stress test with chest pain radiating to her jaw and arm. I personally spoke to cardiology, request CT to eval aorta and if not showing abnormality will consider LHC on 08/08/22 pt states that today she had CP to jaw while walking in the [place] with nitro paste on Physical Exam Physical Exam: Patient awake alert appropriate Cardiac exam is regular without murmurs clicks rubs or gallops Lungs are with basilar crackles at the right base which clear with deep inspiration otherwise are clear Extremities are with trace edema Results & Data Results & Data ([facility]) Vital Signs (Past 12 Hours) Vital Signs Temp Pulse Resp BP Pulse Ox O2 Del Method 08/07/22 15:50 97.7 F 74 18 127/69 93 Room Air 08/07/22 11:26 97.3 F L 72 18 135/79 97 Room Air 08/07/22 07:40 98.4 F 67 18 124/69 99 Room Air Diagnostic Findings Review of chemistry today shows intact renal function reviewed troponin this morning is unremarkable in face of anginal chest pain Previous Doppler lower extremities due to trace edema is unremarkable for DVT PG Care Time/CCT Total # of Minutes Spent Total Time Spent with Patient: Total time spent is greater than 50% in coordination of care (as documented) at patient's floor/unit and/or counseling patient: Coding Level of Care Code 27408 SUB INP/OBS CARE 2/35MIN Diagnoses Chest pain R07.9 Esophageal dysmotility K22.4 GERD (gastroesophageal reflux disease) K21.9 Dyslipidemia E78.5 Hypertension I10
[2022-08-07] MEDS ORDERED: OPTIRAY 320 500ml IV ONE (17:08)
--- NOTE | 2022-08-07 18:13 | CT Scan Report ---
CT angio chest dissec wo/w con HISTORY: 77 years-old Female eval for aortic dissection acute chest pain COMPARISON: Chest CT 09/25/2010 TECHNIQUE: CTA of the chest was obtained both with and without the use of 108 mL Optiray 320. 3-D cor onal and sagittal MIPS were obtained from the axial data set and were submitted for review. All measu rements were obtained according to NASCET criteria. A dose lowering technique was used consistent wit h the principals marce ACHARYA. FINDINGS: CTA: Mild cardiomegaly. No pericardial effusion. The noncontrast scan demonstrates no intramural or medias tinal hematoma. Moderate coronary artery and thoracic aortic calcifications. No thoracic aortic aneur ysm or dissection. Patency of the imaged great vessels. Dilation of the main pulmonary artery, 3.3 cm . No pulmonary emboli are identified. CT CHEST: 1.3 cm heterogeneous thyroid isthmus nodule is partially imaged. Hyperdense 1.1 x 0.8 cm intermediast inal nodule on image 67 series 7 is stable from prior which may represent a lymph node versus ectopic thyroid tissue. No pathologically enlarged lymph nodes. No pneumothorax, pleural effusion, airspace consolidation, overt pulmonary edema or suspicious pulmonary nodule. Central airways are patent. Colonic diverticula. Exophytic 1.8 cm cyst of the superior pole right kidney. Cholecystectomy. Hepati c steatosis. 2.1 cm lesion within the left hepatic lobe on image 43 series 5 demonstrates peripheral arterial enhancement suggestive of a probable hemangioma. Unremarkable soft tissues. Prior right-side d rotator cuff repair. Degenerative changes of the shoulders and spine. IMPRESSION: 1. Atherosclerosis of the thoracic aorta without aneurysm or dissection. 2. Dilation of the main pulmonary artery which may represent pulmonary arterial hypertension. 3. No acute intrathoracic abnormality. 4. Additional findings as above. ACT 112: Negative or not required by law. The above report was generated using voice recognition software. It may contain grammatical, syntax o r spelling errors. Electronically signed by: Boy Joshua M.D. 08/07/2022 6:11 PM
[2022-08-08] MEDS: PANTOprazole 40 MG TAB PO SCH ×2 (08:44→20:13)
[2022-08-08] MEDS: hydroCHLOROthiazide 25 MG TAB PO SCH (08:44)
[2022-08-08] MEDS: CHOLECALCIFEROL 1,000 UNITS 25 MCG TAB PO SCH (08:44)
[2022-08-08] MEDS: CALCIUM CARBONATE 1250MG TAB PO SCH (08:44)
[2022-08-08] MEDS: ENOXAPARIN INJ 40 MG/0.4 ML SYR SQ SCH (08:45)
[2022-08-08 13:05] LABS: Basophils # (auto) 0.02 K/uL (0-0.2); Basophils % (auto) 0.2 %; Eosinophils # (auto) 0.02 K/uL (0-0.50); Eosinophils % (auto) 0.2 %; Hematocrit (blood only) 40.5 % (37.0-47.0); Hemoglobin 13.7 g/dl (12.0-16.0); Immature Granulocytes # (auto) 0.03 K/uL (0.01-0.20); Immature Granulocytes % (auto) 0.2 %; Lymphocytes # (auto) 2.58 K/uL (1.2-3.4); Lymphocytes % (auto) 20.7 %; Mean Corpuscular Hemoglobin 29.2 pg (25.0-34.0); Mean Corpuscular Hgb Conc 33.8 g/dL (32.0-36.0); Mean Corpuscular Volume 86.4 fL (80.0-100.0); Mean Platelet Volume 9.7 fL (9.4-12.4); Monocytes # (auto) 0.99 K/uL (0.11-0.59); Neutrophils % (auto) 70.7 %; Platelet Count 308 K/uL (130-400); RDW Coefficient of Variation 11.7 % (11.5-14.5); RDW Standard Deviation 36.5 fL (36.4-46.3); Red Blood Count 4.69 M/uL (4.20-5.40); White Blood Count 12.44 K/ul (4.8-10.8)
[2022-08-08 13:10] LABS: Calcium 9.6 mg/dl (8.5-10.1); Creatinine Clr Calc Pharmacy 66.7 ml/min; Est GFR (African American) 99.8 ml/min; Est GFR (Non-African American) 86.1 ml/min; Potassium 3.2 mmol/L (3.5-5.1)
[2022-08-08] MEDS ORDERED: methylPREDNISolone 125 MG/2 ML VIAL ONE (13:34)
[2022-08-08] MEDS ORDERED: diphenhydrAMINE 50 MG/ML VIAL ONE (13:34)
[2022-08-08] MEDS ORDERED: FAMOTIDINE 20MG/5ML IV PUSH IV ONE (13:35)
[2022-08-08] MEDS ORDERED: MIDAZOLAM HCL 1 MG/ML 2ML VIAL ONE (13:58)
[2022-08-08] MEDS ORDERED: niCARdipine HCL INJ 2.5 MG/ML 10 ML AMP ONE (13:59)
[2022-08-08] MEDS ORDERED: NITROGLYCERIN/D5W 100MCG/ML 20ML SYR ONE (13:59)
[2022-08-08] MEDS ORDERED: fentaNYL citrate 100 MCG/2 ML VIAL ONE (13:59)
[2022-08-08] MEDS ORDERED: HEPARIN (PORCINE) 1000 UNIT/ML 10 ML (CATH LAB USE ONLY) ONE (13:59)
--- NOTE | 2022-08-08 14:40 | Pre Anesthesia Assessment ---
Date of Service August 08, 2022 Pre Sedation Assessment Vital Signs Temp Pulse Pulse Resp BP Pulse Ox O2 Del Method 08/08/22 07:00 83 08/08/22 11:45 Room Air 08/08/22 10:56 36.8 C 73 18 127/72 97 Room Air 08/08/22 06:26 36.9 C 88 18 125/74 97 Room Air 08/08/22 04:10 36.8 C 77 18 110/64 96 Room Air 08/08/22 00:35 89 08/07/22 22:37 36.9 C 81 18 120/68 Room Air 08/07/22 20:19 36.9 C 88 18 118/73 95 Room Air 08/07/22 15:50 36.5 C 74 18 127/69 93 Room Air Cardiovascular RRR, no murmur, no edema Respiratory normal respiratory effort, lungs clear to auscultation Pre-Sedation Airway Assessment Smoking Status: Never smoker Hx Sleep Apnea: No Short, Thick Neck: Yes Thyromental Distance: < 3.5 Finger Breadths Oral Cavity: + WNL Mallampati Class: II ASA: ASA2 NPO Status Date of Last Intake of Fluids: 08/07/22 Last Oral Intake of Fluids Comment: 2400 Notes The planned sedation has been discussed with the patient. Informed Consent was obtained. I have identified the patient, determined the appropriateness of philip tion and have assessed the patient immediately prior to the procedure. All medicine(s) and interventions are by my order.
--- NOTE | 2022-08-08 14:41 | Post Anesthesia Assessment ---
Date of Service August 08, 2022 Post Sedation Assessment Vital Signs Temp Pulse Pulse Resp BP Pulse Ox O2 Del Method 08/08/22 07:00 83 08/08/22 11:45 Room Air 08/08/22 10:56 36.8 C 73 18 127/72 97 Room Air 08/08/22 06:26 36.9 C 88 18 125/74 97 Room Air 08/08/22 04:10 36.8 C 77 18 110/64 96 Room Air 08/08/22 00:35 89 08/07/22 22:37 36.9 C 81 18 120/68 Room Air 08/07/22 20:19 36.9 C 88 18 118/73 95 Room Air 08/07/22 15:50 36.5 C 74 18 127/69 93 Room Air Recovery Score Activity: Moves 4 extremities Respiration: Deep Breath/Cough Circulation: +/-20% PreAnes Value Consciousness: Fully Awake Oxygen Saturation: > 92% On Room Air Discharge Sedation Level of Care: Phase I Post Sedation Plan On clinical assessment, the patient appears to have tolerated the sedation without complications. Patient is recovering as anticipated. Patient will continue to be monitored by nursing and may be discharged when sedation discharge criteria are met per below protocol. Upon Completions of procedure up to 15 minutes continue every 5 minute vital signs and the P.A.R. score; then discharge to a Phase I or Fast Track to Phase II per the following guidelines: * Discharge Patient to appropriate Phase II area if PAR is 8 or greater or return to pre- procedure baseline. The post - procedure orders will be as directed. * If PAR score is less than 8 or not return to pre-procedure baseline then patient will follow Phase I monitoring till PAR is reached for Phase II. The Phase I may be done in procedure room or may call to secure a Phase I area. * If naloxone or flumazenil are used for reversal, hold in Phase I for continued monitoring from when last reversal dose was given for a minimum of 60 minutes or longer pending the nurse and/or physician discretion of patient condition before discharge to Phase II. Please call the Sedation Physician to re-evaluate and complete post-note for discharge to Phase II area. Do NOT discharge from procedure sedation or Phase 1 until post- sedation evaluation note is complete by procedure /sedation MD Sedation Discharge Instructions to be given to the patient at discharge to home. [facility] Procedure Codes (Charges) Indication for Procedure Indication for procedure: angina Sedation/Anesthesia Procedure 1: Sedation/Anesthesia: 07498 Mod Sedation by the same physician;Init15 Min Child Age 5 & Up Total Sedation Time (minutes): 11
--- NOTE | 2022-08-08 14:43 | Cardiac Catheterization ---
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 Status Clinical evaluation leading to the procedure CAD Presenation: Unstable angina Anginal Classification: CCS IV Heart Failure: No Cardiogenic Shock within 24 Hours: No Cardiac Arrest within 24 Hours: No Imaging Studies Past 6 Months: Yes Stress Studies Past 6 Months: Yes Stress Echocardiogram: Yes - Negative Coronary Anatomy Dominant: Right Left Main (% Stenosis): Ostial (20 to 30%) LAD (% Stenosis): Proximal (20%) Circumflex (% Stenosis): Normal OM1 (% Stenosis): Normal OM2 (% Stenosis): Normal RCA (% Stenosis): Proximal (Mild) and Mid (Mild) R PDA (% Stenosis): Normal R PL1 (% Stenosis): Normal Diagnostic Physicians Name: Cody Negron MD, PhD Closure Device Percutaneous Entry Location: Radial Closure Device: Radial Band Recommendations: Medical Therapy and/or Counseling Cardiac Cath Procedure Full Procedure Date August 08, 2022 Pre-Procedure Diagnosis Pre-Procedure Diagnosis: Angina AUC Score AUC Score: 04 Post-Procedure Diagnosis Post-Procedure Diagnosis: Mild CAD Procedure(s) Performed Procedure(s) Performed: Coronary Angiography Internal Corrosion Specialist Cody Negron MD, PhD Estimated Blood Loss Estimated Blood Loss: 5 ml Medication(s) Medication(s): Diphenhydramine, Fentanyl, Heparin, Lidocaine 1%, Nicardipine, Nitroglycerin and Versed Summary of Findings Brief description: Patient was brought to the cardiac catheterization suite where she was shaved and prepped in a sterile fashion. Pretreated with IVP contrast allergy using 125 mg IV Solu-Medrol, 20 mg IV Pepcid, and 25 mg IV Benadryl. Sedated using IV Versed and fentanyl. Soft tissues of the right wrist were anesthetized using 2 mL of 1% Xylocaine. The right radial artery was accessed using modified Seldinger technique and a 6 Macedonian radial artery glide sheath was placed. Patient was provided anticoagulation with IV heparin and antispasmodics including nicardipine and nitroglycerin. All catheters were advanced and exchanged over a 0.035 J-tip wire. Left coronary angiography in orthogonal views with a 5 Macedonian Hassell 4 diagnostic catheter. Right coronary angiography in orthogonal views with a 5 Macedonian 3 DRC diagnostic catheter. All diagnostic catheters were removed. Radial artery sheath was removed. Hemostasis was obtained using a TR band. Patient was hemodynamically stable and asymptomatic. She was returned to the recovery area. This ended the case. Coronary angiography findings: LMT: Large-caliber vessel which bifurcates into LAD and left circumflex. Mild calcification proximally and mild ostial to proximal stenosis of 20 to 30%. LAD: This is large caliber and transapical. Proximal segment has mild calcification. The vessel gives 3 large septal trunks. At the level of the first septal trunk there is a focal 20% stenosis. There are no significant diagonal branches. The LAD is tortuous and has no more than mild scattered plaques. LCx: Large caliber and nondominant. Travels in the AV groove for a very short distance before it gives a large caliber branching OM1. Then, the circumflex continues through the mid segment in the AV groove finally terminating in a large caliber branching OM 2. The obtuse marginal branches are tortuous. There is no more than mild luminal irregularities in the circumflex and its branches. RCA: This is large caliber and dominant. Proximal segment with mild calcification and mild luminal irregularities. Mid segment has diffuse mild disease of up to 30% stenosis. Distally there is no more than mild luminal irregularities. The vessel then bifurcates into a large caliber PDA and a large caliber multi branching posterolateral. These branch vessels have no angiographically evident disease. Summary: Tortuous coronary arteries consistent with hypertension Mild nonocclusive coronary disease as described Hemodynamics Rest Ao:: 130/76 mmHg, mean 98 mmHg Final Ao: 120/71 mmHg, mean 77 mmHg LV: Not performed Recommendations Recommendations: Medical Therapy and/or Counseling Radiation Exposure (mGy) 433 mGy. Fluoroscopy time 2.1 minutes Contrast (mls) 65 mL Anesthesia 1 mg IV Versed, 25 mcg IV fentanyl Procedural Complication(s) None Disposition Recovery Room\PACU I attest to the content of the Intraoperative Record and any orders documented therein. Any exceptions are noted below. [facility] Card Cath Procedure Codes Cardiac Catheterization Procedure 1: Cardiovascular Cath Procedures: 06967 Coronaries Moderate Sedation Procedure 1: Sedation/Anesthesia: 84204 Mod Sedation by the same physician;Init15 Min Child Age 5 & Up (11 minutes total) PG Care Time/CCT Total # of Minutes Spent Total Time Spent with Patient: Total time spent is greater than 50% in coordination of care (as documented) at patient's floor/unit and/or counseling patient:
--- NOTE | 2022-08-08 20:36 | Hospitalist Progress Note ---
Date of Service August 08, 2022 Assessment & Plan (1) Chest pain: Plan: Chest pain acute unstable angina -Patient reports 3 days of worsening chest pain consistently brought out with exertion improved by rest and nitro. Cardiology consulted. Performed treadmill stress test 08/06/2022 reportedly without significant changes Patient states she has significant discomfort during the test troponin negative x5 Cardiology recommends CT angiography of chest and if negative will consider pursuing left heart catheterization on 08/08/2022 Patient with contrast allergy premedication performed 08/07 for testing Completed cardiac cath. No need for stent placement. Esophageal dysmotility/GERD chronic unclear if stable at this time chronic and stable EGD 03/04 with esophagitis and gastritis Continue PPI twice daily Elevated glucose self-limited not an active issue Nonfasting 103, no A1c on file. No history of DM. subsequent glucoses are normal Hypertension chronic stable on hydrochlorothiazide Hyperlipidemia chronic stable Fatty liver disease chronic stable No transaminitis Osteopenia Continue on calcium/vitamin D DVT prophylaxis: Lovenox CODE STATUS: DNR/DNI, discussed with patient and daughter at bedside (2) Esophageal dysmotility: (3) GERD (gastroesophageal reflux disease): (4) Dyslipidemia: (5) Hypertension: Admission and Anticipated Discharge Date Admission Date: August 07, 2022 Subjective 77 yo female reports feeling well after her cardiac cath. Review of Systems Review of Systems: All systems reviewed & are unremarkable except as noted in HPI & below Physical Exam Physical Exam: Patient awake alert appropriate Cardiac exam is regular without murmurs clicks rubs or gallops Lungs are with basilar crackles at the right base which clear with deep inspiration otherwise are clear Extremities are with trace edema Results & Data Results & Data ([facility]) Vital Signs (Past 12 Hours) Vital Signs Temp Pulse Pulse Pulse Resp BP Pulse Ox 08/08/22 19:42 36.6 C 73 18 115/72 94 08/08/22 18:57 37.0 C 82 16 115/69 96 08/08/22 17:57 36.8 C 80 16 130/58 L 95 08/08/22 16:55 36.9 C 80 80 16 131/79 97 08/08/22 16:25 36.6 C 60 60 18 124/74 97 08/08/22 16:25 36.6 C 60 18 124/74 97 08/08/22 15:55 36.6 C 68 16 127/63 94 08/08/22 15:40 36.9 C 62 67 18 130/65 95 08/08/22 15:40 36.9 C 67 18 130/65 95 08/08/22 15:25 36.6 C 62 20 114/78 97 08/08/22 15:25 36.6 C 62 20 114/78 97 08/08/22 15:20 59 L 08/08/22 15:10 36.9 C 68 18 117/73 98 08/08/22 14:50 64 16 131/65 98 08/08/22 14:35 67 16 149/62 H 98 08/08/22 11:45 08/08/22 10:56 36.8 C 73 18 127/72 97 O2 Del Method 08/08/22 19:42 Room Air 08/08/22 18:57 Room Air 08/08/22 17:57 Room Air 08/08/22 16:55 Room Air 08/08/22 16:25 Room Air 08/08/22 16:25 Room Air 08/08/22 15:55 Room Air 08/08/22 15:40 Room Air 08/08/22 15:40 Room Air 08/08/22 15:25 Room Air 08/08/22 15:25 Room Air 08/08/22 15:20 08/08/22 15:10 Room Air 08/08/22 14:50 Room Air 08/08/22 14:35 Room Air 08/08/22 11:45 Room Air 08/08/22 10:56 Room Air PG Care Time/CCT Total # of Minutes Spent Total Time Spent with Patient: Total time spent is greater than 50% in coordination of care (as documented) at patient's floor/unit and/or counseling patient: Coding Level of Care Code 22973 SUB INP/OBS CARE 2/35MIN Diagnoses Chest pain R07.9 Esophageal dysmotility K22.4 GERD (gastroesophageal reflux disease) K21.9 Dyslipidemia E78.5 Hypertension I10
[2022-08-08] MEDS: ACETAMINOPHEN 325 MG TAB PO PRN (21:06)
[2022-08-09] MEDS: PANTOprazole 40 MG TAB PO SCH (09:35)
[2022-08-09] MEDS: hydroCHLOROthiazide 25 MG TAB PO SCH (09:35)
[2022-08-09] MEDS: CALCIUM CARBONATE 1250MG TAB PO SCH (09:35)
[2022-08-09] MEDS: CHOLECALCIFEROL 1,000 UNITS 25 MCG TAB PO SCH (09:36)
[2022-08-09] MEDS: ENOXAPARIN INJ 40 MG/0.4 ML SYR SQ SCH (09:37)
--- NOTE | 2022-08-09 15:06 | Electrocardiogram Report ---
Test Reason : Blood Pressure : / mmHG Vent. Rate : 059 BPM Atrial Rate : 059 BPM P-R Int : 160 ms QRS Dur : 088 ms QT Int : 440 ms P-R-T Axes : 059 062 054 degrees QTc Int : 435 ms Sinus bradycardia Otherwise normal ECG When compared with ECG of 05-AUG-2022 09:43, No significant change was found Confirmed by Rakan Fuentes ([id number]) on 08/09/2022 3:06:13 PM Referred By: REFERRED SELF Confirmed By:Jose Fuentes
--- NOTE | 2022-08-09 15:28 | Electrocardiogram Report ---
Test Reason : Blood Pressure : / mmHG Vent. Rate : 062 BPM Atrial Rate : 062 BPM P-R Int : 160 ms QRS Dur : 084 ms QT Int : 444 ms P-R-T Axes : 044 057 057 degrees QTc Int : 450 ms Normal sinus rhythm Normal ECG When compared with ECG of 08-AUG-2022 15:37, (unconfirmed) No significant change was found Confirmed by Rakan Fuentes ([id number]) on 08/09/2022 3:28:30 PM Referred By: REFERRED SELF Confirmed By:Jose Fuentes
--- NOTE | 2022-08-09 15:58 | Discharge Summary ---
Date of Service August 09, 2022 Admission HPI Per Admitting Provider Kirti is a 77-year-old female with a past medical history of GERD, hypertension, dyslipidemia, de Quervain's tenosynovitis who presents with chest pain radiating into the neck. EKG: Normal sinus rhythm, QTC 457, no ST segment changes or T wave abnormalities. Initial troponin is 2.8, negative Sodium normal, KJ slightly low at 3.4, COVID-negative CBC is normal. Hxcath without stents x2 several years ago 3 days sx worseningwith activity EKG normal, trop normal Nitro 3 days of pain in chest, sternum, neck, and shoulder. She has some associated shortness of breath with it. Exertion brings it out, rest normally improves pain but last night had more gas and pain which persisted 2 hours overnight. No orthopneasia. Nitro tablet helped pain. Has occured at rest 1-2x in the last 3 days, but is usually and consistently brought on jeb gup stairs and sometimes walking. Hx of reflux/GERD, odynophagia, dysphagia. EGD 02/2022 with mild erythema, +reflux esophagitis. No history of NC. Fhx mother had NC, father at 60 and had NC in early 50s. Pt had a cath >20 years ago at [facility] with no stents placed Siser with DM. Pt denies history of DM HTN on water pill (hctz) Has reatined fluid since having ahysterectomy in her 40s, no recent change Sees Dr. Vang Medical History: Reviewed Medications: Reviewed. Did not take today. Potassium/protonix/vit D/hctz Surgical History: Reviewed Allergies: Celebrex, hives Social History: No tobacco product use current or former, no etoh, no MM Code Status: DNR/DNI Principal Diagnosis chest pain Discharge Exam Patient awake alert appropriate Cardiac exam is regular without murmurs clicks rubs or gallops Lungs are with basilar crackles at the right base which clear with deep inspiration otherwise are clear Extremities are with trace edema Discharge Data Allergies Allergy/AdvReac Type Severity Reaction Status Date / Time celecoxib Allergy Unknown HIVES Verified 06/13/22 13:15 Iodinated Contrast Media Allergy Unknown FROM HEART Verified 06/13/22 13:15 CATHERIZATION - TURNED REALLY RED AND MIGRAINE. Consultations 08/05/22 12:01 ED Decision to Admit Stat 08/05/22 14:52 Consult Cardiology Routine Procedures Performed Operation Date: 08/08/22 13:30 Actual Procedures p Cineradiography w/Routine Exam - Cody Negron MD, PhD p Cath, Coronaries ONLY (no LV) - Cody Negron MD, PhD Ordered Studies 08/05/22 10:09 US venous doppler LE LT Stat 08/07/22 11:27 CTA chest dissec wo/w con [CT angio chest dissec wo/w con] Routine 08/08/22 12:41 CL Cath Imgs for PACS use only Stat Hospital Course (1) Chest pain: Chest pain acute unstable angina -Patient reports 3 days of worsening chest pain consistently brought out with exertion improved by rest and nitro. Cardiology consulted. Performed treadmill stress test 08/06/2022 reportedly without significant changes Patient states she has significant discomfort during the test troponin negative x5 Cardiology recommends CT angiography of chest and if negative will consider pursuing left heart catheterization on 08/08/2022 Patient with contrast allergy premedication performed 08/07 for testing Completed cardiac cath. No need for stent placement. will defer statins or Aspirin as no significant CAD noted on cath. Esophageal dysmotility/GERD chronic unclear if stable at this time chronic and stable EGD 03/04 with esophagitis and gastritis Continue PPI twice daily Elevated glucose self-limited not an active issue Nonfasting 103, no A1c on file. No history of DM. subsequent glucoses are normal Hypertension chronic stable on hydrochlorothiazide Hyperlipidemia chronic stable Fatty liver disease chronic stable No transaminitis Osteopenia Continue on calcium/vitamin D (2) Esophageal dysmotility: (3) GERD (gastroesophageal reflux disease): (4) Dyslipidemia: (5) Hypertension: Total Time Total Time Spent Total Time Spent (In Minutes): 32 Discharge Plan Discharge Items Patient Disposition: Home - Self-Care Reason For Visit: CHEST PAIN Discharge Diagnosis: chest pain Activity: Resume your previous activity Non-emergency contact: Primary Care Provider Call non-emergency contact if: you have any medication questions Follow-up/Referrals: Cyndi Vang DO [Primary Care Provider] - 08/12/22 10:20 am (08/12/22 @ 10:20 per Jonathan at scheduling) Diet: Heart Healthy Addtl Attending Provider Instructions: You were evaluated for chest pain. Thankfully, this chest pain does not appear to be cardiac in nature. Your coronary arteries actually appeared clean. Will recommend you followup with your PCP and discuss starting cholesterol medication and or aspirin. The chest pain can be muscular in orgien or it may be from the esophagus. However, this does not appear to be life threatening. You can be discharged on your regular medicine. Would limit lifting anything over 2 pounds for at least 1 week. No driving during that time. Pending Studies at Discharge: No Stand-Alone Forms: My [facility] [employer], Smoking Cessation Medications and DC Order Prescriptions: Continued calcium carbonate [Calcium 600] 600 mg calcium (1,500 mg) tablet 600 mg PO DAILY cholecalciferol (vitamin D3) 50 mcg (2,000 unit) capsule 50 mcg PO DAILY hydrochlorothiazide 12.5 mg capsule 12.5 mg PO DAILY Qty: 90 3RF pantoprazole 40 mg tablet,delayed release (DR/EC) 40 mg PO BID Qty: 180 3RF Discharge Orders: Discharge Order (Routine); Ordered 08/09/22 Ordered By: Rommel Theodore/Other Patient Handouts: Cardiac Catheterization Ch, Cardiac Cath Intervention Ch, Cardiac Cath Transradial Admission Data Admit Date/Time: 08/07/22 16:29 Attending Provider: Rommel Razo Admit Provider: Ti Chavez Primary Care Provider: Cyndi Vang Other Providers: Lenny Power ; Rakan Fuentes Other Interventions: Discharge Summary Assessment (RN) Last Done: 08/09/22 14:09 Coding Level of Care Code HOSP INP/OBS DISCH >30 MIN Diagnoses Chest pain R07.9 Esophageal dysmotility K22.4 GERD (gastroesophageal reflux disease) K21.9 Dyslipidemia E78.5 Hypertension I10
== END 2022-08-09 15:29 | disposition home or self-care (01) | DRG 287 ==
LOC: 2N 09:28 → ED 09:28 → SUATTDRO 12:29 → 2N 13:34 → SUATTDRO 08-07 16:29 → 2S 08-08 15:16
PROC: CLB.CCO (2022-08-08 13:30)
DX: K21.9 Gastro-esophageal reflux disease without esophagitis; Z91.041 Radiographic dye allergy status; E78.5 Hyperlipidemia, unspecified; K22.4 Dyskinesia of esophagus; Z96.653 Presence of artificial knee joint, bilateral; I10 Essential (primary) hypertension; K76.0 Fatty (change of) liver, not elsewhere classified; M85.80 Other specified disorders of bone density and structure, unspecified site; I25.110 Atherosclerotic heart disease of native coronary artery with unstable angina pectoris; Z66 Do not resuscitate